=== PATIENT | female | born 1985 | race American Indian/Alaskan Native ===

== ENCOUNTER 2017-11-03 13:52 | Outpatient (CLI) | payer OTHER ==
[2017-11-03] MEDS ORDERED: PROVENTIL IH ONE (14:49)
== END 2017-11-03 13:53 | disposition home or self-care (01) ==
LOC: PF 13:52
PROVIDERS: ATTEND Internal Medicine
DX: J45.909 Unspecified asthma, uncomplicated (principal); G47.33 Obstructive sleep apnea (adult) (pediatric); R06.00 Dyspnea, unspecified; R05 Cough
CPT/HCPCS: 94060; 94640; 94729